=== PATIENT | male | born 1975 | race Caucasian/White ===

== ENCOUNTER 2018-12-13 19:16 | Emergency (ER) | payer OTHER ==
[~2018-12-13] VITALS: Ht 190.5 cm; Wt 82.0 kg
[2018-12-13] MEDS ORDERED: KETOROLAC 30MG/ML VIAL IV STA (20:38)
[2018-12-13] MEDS ORDERED: VANCOMYCIN 1 G PREMIX 200 ML IV ONE (20:45)
[2018-12-13 22:41] VITALS: BP 145/87
== END 2018-12-13 22:41 | disposition home or self-care (01) ==
LOC: ER 19:16
DX: L02.31 Cutaneous abscess of buttock (principal); Z90.89 Acquired absence of other organs
CPT/HCPCS: 96365; 96375; 99283; J1885; J3370; Z7610